=== PATIENT | female | born 1950 | race Caucasian/White ===

== ENCOUNTER 2018-06-17 07:11 | Day surgery (SDC) | payer MEDICARE, BC ==
--- NOTE | 2018-06-14 09:59 | HP ---
AMENDED REPORT NOW INCLUDES COSIGNER DESIGNATION - ESIGNED BEFORE ADJUSTMENT PREOPERATIVE HISTORY AND PHYSICAL: DATE OF SURGERY/ADMISSION: 06/17/18 DATE OF OFFICE VISIT/ENCOUNTER: 06/10/18 ATTENDING SURGEON: Clarice Castillo MD * (DICTATED BY COLLIN LOVE) PROCEDURE: Open reduction internal fixation, right wrist. CHIEF COMPLAINT: Right wrist pain after fall. HISTORY OF PRESENT ILLNESS: This is a 67-year-old female who sustained injury to her right wrist on 06/09/18 when she slipped in the mud and landed on an outstretched right hand. [place] She was initially seen at [facility] and had some x-rays, which showed a displaced comminuted extraarticular distal radius fracture. She was splinted and referred to Dr. Castillo for further evaluation and treatment considerations. This is her dominant hand. After review of x-rays and examination of the patient, Dr. Castillo is recommending surgical intervention at this time in the form of an ORIF, right wrist and the patient has consented to proceed. PAST MEDICAL HISTORY: 1. Anxiety. 2. Hypertension. PAST SURGICAL HISTORY: 1. Breast reduction. 2. Tubal ligation. 3. Hysterectomy. MEDICATIONS: 1. Alprazolam 0.25 mg p.r.n. 2. Vitamin B12 daily. 3. Aspirin low dose 81 mg daily. 4. Losartan potassium/hydrochlorothiazide 10/12.5 mg daily. ALLERGIES: TORADOL causes nausea and vomiting. FAMILY MEDICAL HISTORY: Diabetes, heart disease, hypertension, cancer. SOCIAL HISTORY: The patient is retired. She denies tobacco use, recreational drug use, and does not drink alcohol. REVIEW OF SYSTEMS: General: Negative for fevers, chills, night sweats. No known anesthesia problems. No unexplained weight loss/gain. HEENT: Negative for headache, lightheadedness, syncopal episodes, visual changes. Integumentary : Negative for abrasions, lesions, open wounds. Cardiothoracic: Negative for hypertension, chest pain, palpitations, edema. Respiratory: Negative for shortness of breath with exertion, chronic cough, wheezing. GI: Negative for nausea, vomiting, diarrhea, constipation, GERD. : Negative for nocturia, urinary frequency/urgency, history of UTIs, kidney problems. Musculoskeletal: Positive for current complaint. Negative for chronic or intermittent back pain or history of fractures. Neurological: Negative for paresthesias, numbness, history of seizure, stroke, poor balance. Endocrine: Negative for diabetes and thyroid issues. Hematologic: Negative for easy bruising, anemia, bleeding disorders, history of DVT. Infectious Disease: Negative for history of MRSA, hepatitis C, or HIV. PHYSICAL EXAMINATION GENERAL: Well-developed, well-nourished 67-year-old female, in no acute distress. VITAL SIGNS: Height 5 feet 4 inches, weight 186, pulse rate 78, blood pressure 140/68. HEENT: Normocephalic, atraumatic. Pupils are equal, round, and reactive to light and accommodation. Extraocular movements are intact. Throat is clear. NECK: Supple. No palpable lymph nodes. PULMONARY: Lungs are clear to auscultation bilaterally. No wheezes, rales, or rhonchi. CARDIOVASCULAR: Regular rate and rhythm. S1, S2. No murmurs, rubs, or gallops. No edema. ABDOMEN: Positive bowel sounds. Soft, nontender. MUSCULOSKELETAL: On exam of the right upper extremity, she is in a sugar-tong splint. Neurovascular function is intact. She has mild swelling of her fingers. NEUROLOGIC: Alert and oriented x3. Cranial nerves II through XII are intact. Sensation is intact to light touch. IMAGING STUDIES: X-rays: AP, lateral, and oblique of the right wrist show comminuted extraarticular fracture of the distal radius, which is displaced. ASSESSMENT: Right distal radius fracture. PLAN: The patient is scheduled to undergo an open reduction internal fixation of her right wrist with Dr. Castillo on 06/17/18. She will return to the office 10 days postop for followup and suture removal. A prescription for [place] was e- scribed to the patient's pharmacy for postoperative pain management. COLLIN LOVE [id number]/[facility] #: [id number] MTDD
[~2018-06-17 07:11] MED LIST: Buffered Lidocaine 0.9% SYRIN* 5 ML/SYR SYRINGE INTRADERM ONE
[2018-06-17] MEDS ORDERED: ceFAZolin 2 GM PREMIX (*) 2 GM/50 ML BAG IVPB ONE (07:40)
[2018-06-17] MEDS ORDERED: Lidocaine 2% PF * 5 ML VIAL ONE ×2 (08:05→08:06)
[2018-06-17] MEDS ORDERED: Propofol* 10 MG/ML 20 ML BTL IV PUSH ONE (08:05)
[2018-06-17] MEDS ORDERED: fentaNYL* 50 MCG/ML 2 ML VIAL (100 MCG VIAL) ONE (08:06)
[2018-06-17] MEDS ORDERED: ROPIVACAINE 5 MG/ML 30 ML BTL (0.5%) ONE (08:06)
[2018-06-17] MEDS ORDERED: Midazolam* 1 MG/ML 2 ML VIAL (2 MG) ONE (08:06)
[2018-06-17] MEDS ORDERED: Metoclopramide IV* 5 MG/ML 2 ML VIAL ONE (08:16)
[2018-06-17] MEDS ORDERED: Dexamethasone IV* 4 MG/ML 1 ML (4 MG) ONE ×2 (08:16→10:06)
[2018-06-17] MEDS ORDERED: Ondansetron INJ* 2 MG/ML VIAL ONE (08:16)
[2018-06-17] MEDS ORDERED: Ketorolac INJ* 30 MG/ML 1 ML VIAL ONE (08:27)
[2018-06-17] MEDS ORDERED: Bupivacaine 0.25% W/EPI* 10 ML SDV ONE (08:51)
[2018-06-17] MEDS ORDERED: Mepivacaine 2% MPF (20 MG/ML)* 20 ML MPF ONE (09:01)
[2018-06-17] MEDS ORDERED: Propofol* 500 MG/50 ML BTL ONE (09:33)
[2018-06-17] MEDS ORDERED: EPHEDrine (Pressors)* 50 MG/ML VIAL ONE (09:54)
[2018-06-17] MEDS ORDERED: fentaNYL* 50 MCG/ML 2 ML VIAL (100 MCG VIAL) IV PRN (10:23)
[2018-06-17] MEDS ORDERED: Naloxone* 0.4 MG/ML 1 ML VIAL IV PRN (10:23)
[2018-06-17] MEDS ORDERED: Ondansetron ODT TAB* 4 MG PO PRN (10:23)
[2018-06-17 11:13] VITALS: BP 116/65
--- NOTE | 2018-06-17 23:23 | OP ---
DATE OF OPERATION: 06/17/18 [facility] DATE OF : 48. SURGEON: Clarice Castillo M.D. EDUCATION ADMINISTRATOR: COLLIN White ANESTHESIA: Block. PRE-OP DIAGNOSIS: Right distal radius fracture. POST-OP DIAGNOSIS: Right distal radius fracture. OPERATIVE PROCEDURE: Open reduction and internal fixation of right distal radius. ESTIMATED BLOOD LOSS: Zero. TOURNIQUET TIME: About 30 minutes. INDICATIONS: Mindi is a 67-year-old woman who fell and injured her right wrist. X-rays shows a comminuted extraarticular displaced fracture of the distal radius. She presents for ORIF. DESCRIPTION OF PROCEDURE: The patient was brought to the operating room, was given a block anesthetic and sedation anesthetic, and placed in the supine position on the operating table with a tourniquet around her right upper arm. The skin of her left upper extremity was prepped and draped in the usual sterile fashion. The upper extremity was exsanguinated and the tourniquet elevated to 250 mmHg. A longitudinal incision was made over the FCR tendon and the superficial and deep portion of the FCR tendon sheath was incised longitudinally. The tendon of the FCR and the FPL muscle were retracted. The pronator quadratus was then incised and subperiosteally dissected off of the distal radius. The fracture was reduced and then a Synthes distal radius variable angle plate was secured with one proximal screw. The position of the hardware and fracture fragments checked on the C-arm in the AP and lateral views and found to be satisfactory. Four screws were then placed in the distal aspect of the plate, short of the dorsal cortex, and then two additional screws were placed in the proximal aspect of the plate. The position of the hardware and fracture fragments checked on the C-arm in the AP and lateral views and found to be satisfactory. The wound was irrigated. The pronator quadratus was repaired over the plate with 2-0 Vicryl suture. The FCR tendon sheath was repaired with 2-0 Vicryl suture and then the skin edges reapproximated with 4-0 nylon suture. The wounds were dressed with Xeroform, 4x4, Webril, and a volar splint. The patient tolerated the procedure well and was brought to the recovery room in good condition. [id number]/[facility] #: [id number] [facility]
--- NOTE | 2018-06-18 07:58 | RAD ---
INDICATION: Right wrist ORIF Other extra-articular fracture of the lower and of right radius COMPARISONS: None available at the time of dictation TECHNIQUE: Fluoroscopy was provided for a surgical procedure. Total fluoroscopy time is: 24 seconds FINDINGS: Spot images demonstrate internal fixation of the distal radial fracture. There is a nondisplaced fracture of the styloid process of the ulna. IMPRESSION: FLUOROSCOPY WAS PROVIDED FOR A SURGICAL PROCEDURE CPT II Codes: G9500
== END 2018-06-17 11:28 | disposition home or self-care (01) ==
LOC: OR 07:11
PROVIDERS: ATTEND Orthopaedic Surgery
DX: S52.551A Other extraarticular fracture of lower end of right radius, initial encounter for closed fracture (principal); W18.30XA Fall on same level, unspecified, initial encounter; Y92.833 Campsite as the place of occurrence of the external cause; I10 Essential (primary) hypertension; F41.9 Anxiety disorder, unspecified
CPT/HCPCS: 76000; C1713; C1776; J0670; J0690; J1100; J1885; J2250; J2405; J2704; J2765; J2795; J3010

== ENCOUNTER 2021-01-22 00:23 | Inpatient (IN) ==
[2021-01-22] MEDS ORDERED: Heparin 5000 UNITS/ML 1 mL VIAL IV SCH (01:00)
[2021-01-22] MEDS ORDERED: Heparin DRIP 25,000 UNITS BAG 25,000 UNITS/500 ML BAG IV SCH ×3 (01:00→18:30)
[2021-01-22 01:11] LABS: ABS Basophils 0.1 10^3/ul (0-0.2); ABS Lymphocytes 1.6 10^3/ul (1.0-4.8); ABS Monocytes 0.6 10^3/ul (0-0.8); ABS Neutrophils 7.8 10^3/ul (1.5-7.7); Hematocrit 33 % (35-47); Hemoglobin 11.2 g/dL (12.0-16.0); Mean Corpuscular HGB Conc 34 g/dL (31-36); Mean Corpuscular Hemoglobin 30 pg (27-31); Mean Corpuscular Volume 89 fL (80-97); Mean Platelet Volume 6.8 fL (7.4-10.4); Platelet Count 402 10^3/uL (150-450); Red Blood Count 3.75 10^6 /uL (3.70-4.87); Red Cell Distribution Width 14 % (10-15); White Blood Count 10.2 10^3/uL (3.5-10.8)
[2021-01-22 01:40] LABS: Troponin I 0.95 ng/mL (<0.03)
[2021-01-22] MEDS ORDERED: Nitro 2% OINT (Nitroglycerin) 1 INCH/PAK TOPICAL ONE (01:48)
[2021-01-22 01:56] LABS: Blood Urea Nitrogen 20 mg/dL (6-24); EGFR African American 57.4 (>60); EGFR Non-African American 47.5 (>60)
[2021-01-22 02:12] LABS: Cholesterol 255 mg/dL; HDL Cholesterol 52.7 mg/dL; LDL Cholesterol 184 mg/dL; Triglycerides 90 mg/dL
[2021-01-22 03:04] LABS: Anion Gap 11 mmol/L (2-11); CO2 Carbon Dioxide 19 mmol/L (22-32); Calcium 8.8 mg/dL (8.6-10.3); Chloride 108 mmol/L (101-111); Potassium 3.7 mmol/L (3.5-5.0); Sodium 138 mmol/L (135-145)
[2021-01-22 03:10] LABS: ALT 10 U/L (7-52); AST 17 U/L (13-39); Albumin/Globulin Ratio 1.5 (1-3); Alkaline Phosphatase 107 U/L (34-104); Globulin 2.7 g/dL (2-4); Glucose 125 mg/dL (70-100); Total Protein 6.7 g/dL (6.4-8.9)
[2021-01-22 03:16] LABS: BUN/Creatinine Ratio 17.7 (8-20)
[2021-01-22 04:31] LABS: Troponin I 2.17 ng/mL (<0.03)
[2021-01-22] MEDS ORDERED: NS 0.9% 1000 ml BAG 1,000 ML IV SCH ×2 (06:15→12:30)
[2021-01-22 08:02] LABS: Troponin I 4.11 ng/mL (<0.03)
[2021-01-22] MEDS ORDERED: diPHENhydraMINE 25 mg TAB PO PRN (08:04)
[2021-01-22 08:27] LABS: Hematocrit 34 % (35-47); Hemoglobin 11.8 g/dL (12.0-16.0); Mean Corpuscular HGB Conc 34 g/dL (31-36); Mean Corpuscular Hemoglobin 31 pg (27-31); Mean Corpuscular Volume 89 fL (80-97); Mean Platelet Volume 7.3 fL (7.4-10.4); Platelet Count 405 10^3/uL (150-450); Red Blood Count 3.83 10^6 /uL (3.70-4.87); Red Cell Distribution Width 14 % (10-15); White Blood Count 7.9 10^3/uL (3.5-10.8)
[2021-01-22] MEDS: Aspirin EC 81 mg TAB.EC (enteric coated) PO SCH (08:38)
[2021-01-22] MEDS ORDERED: Pneumococcal Vac 23-Polyvalent IM ONE (09:00)
[2021-01-22 10:23] LABS: Troponin I 4.74 ng/mL (<0.03)
[2021-01-22] MEDS ORDERED: Heparin 2 UNITS/ML 1000 mls 1,000 ML IV ONE (10:55)
[2021-01-22] MEDS ORDERED: Iohexol 300 (CONTRAST) 10 ML SDV ONE (10:56)
[2021-01-22] MEDS ORDERED: Lidocaine 1% VIAL 10 MG/ML VIAL ONE ×2 (10:56→11:10)
[2021-01-22] MEDS ORDERED: Heparin 1,000 UNIT/ML 10 ml (10,000 UNITS) CATHLAB/DIALYSIS ONE ×2 (11:09→11:58)
[2021-01-22] MEDS ORDERED: nitroGLYCERIN DRIP 25,000 MCG/250 ML BTL ONE (11:09)
[2021-01-22] MEDS ORDERED: VERAPAMIL 2.5 MG/ML 2 ML VIAL ** 5 mg/2 ml ONE (11:09)
[2021-01-22] MEDS ORDERED: Midazolam 5 mg/5 ml VIAL 1 mg/ml 5 ml VIAL (5 mg) ONE (11:09)
[2021-01-22] MEDS ORDERED: Heparin 2 UNITS/ML 1000 mls 3,000 ML IV ONE (11:09)
[2021-01-22] MEDS ORDERED: fentaNYL 100 mcg/2 ml 50 MCG/ML VIAL ONE (11:09)
[2021-01-22] MEDS ORDERED: Iodixanol 320 (CONTRAST) 100 ML SDV ONE ×2 (11:10→11:52)
[2021-01-22] MEDS ORDERED: Iohexol 350 (CONTRAST) 200 ML MDV IV ONE (11:44)
[2021-01-22] MEDS: NS 0.9% 1000 ml BAG 1,000 ML IV SCH (23:25)
[2021-01-22] MEDS: Heparin 5000 UNITS/ML 1 mL VIAL IV SCH (23:46)
[2021-01-23 05:24] LABS: Hematocrit 30 % (35-47); Hemoglobin 10.4 g/dL (12.0-16.0); Mean Corpuscular HGB Conc 35 g/dL (31-36); Mean Corpuscular Hemoglobin 30 pg (27-31); Mean Corpuscular Volume 88 fL (80-97); Mean Platelet Volume 6.6 fL (7.4-10.4); Platelet Count 365 10^3/uL (150-450); Red Blood Count 3.41 10^6 /uL (3.70-4.87); Red Cell Distribution Width 15 % (10-15); White Blood Count 7.7 10^3/uL (3.5-10.8)
[2021-01-23 05:43] LABS: ABS Basophils 0.1 10^3/ul (0-0.2); ABS Lymphocytes 1.9 10^3/ul (1.0-4.8); ABS Monocytes 0.6 10^3/ul (0-0.8); ABS Neutrophils 5.2 10^3/ul (1.5-7.7); Lymphocyte % 24.5 %
[2021-01-23 05:44] LABS: BUN/Creatinine Ratio 16.5 (8-20); Calcium 8.7 mg/dL (8.6-10.3); EGFR African American 59.9 (>60); EGFR Non-African American 49.5 (>60); Potassium 3.5 mmol/L (3.5-5.0)
[2021-01-23] MEDS: Aspirin EC 81 mg TAB.EC (enteric coated) PO SCH (09:01)
[2021-01-23] MEDS: Nystatin SUSPENSION 100,000 UNITS/ML UDC PO SCH ×2 (13:02→17:51)
[2021-01-23] MEDS: NS 0.9% 1000 ml BAG 1,000 ML IV SCH (13:02)
[2021-01-23] MEDS: Heparin 5000 UNITS/ML 1 mL VIAL IV SCH (14:56)
[2021-01-23] MEDS ORDERED: Nitro 2% OINT (Nitroglycerin) 1 INCH/PAK TOPICAL ONE (18:32)
[2021-01-23] MEDS ORDERED: Nitro 2% OINT (Nitroglycerin) 1 INCH/PAK ONE (18:34)
[2021-01-23 18:45] VITALS: BP 129/47
[2021-01-23] MEDS ORDERED: nitroGLYCERIN DRIP 25,000 MCG/250 ML BTL IV SCH (19:00)
[2021-01-24] MEDS ORDERED: Nitro Patch/OINT Remove PATCH PATCH OFF ONE
== END 2021-01-23 19:00 | disposition short-term general hospital (02) | DRG 282 ==
LOC: ED 00:23 → MEDTELE 01:54
PROVIDERS: ADMIT Internal Medicine; ATTEND Hospitalist